=== PATIENT | female | born 1955 | race Caucasian/White ===

== ENCOUNTER 2020-07-27 07:54 | Emergency (ER) | payer OTHER ==
[~2020-07-27] VITALS: Ht 162.6 cm; Wt 56.7 kg
[2020-07-27 07:58] VITALS: BP_SYST 127
[2020-07-27] MEDS ORDERED: KETOROLAC TROMETHAMINE 60 MG/2 ML VIAL IM ONE (08:15)
[2020-07-27] MEDS ORDERED: LORazepam 1 MG TABLET PO ONE (08:15)
[2020-07-27 08:34] LABS: BASOPHILS # (AUTO) 0.1 K/uL (0.0-0.2); BASOPHILS % (AUTO) 0.9 % (0.0-2.0); EOSINOPHILS # (AUTO) 0.1 K/uL (0.0-0.4); EOSINOPHILS % (AUTO) 1.9 % (0.0-4.0); HEMATOCRIT 39.9 % (36-48); HEMOGLOBIN 13.1 g/dL (12.0-16.0); LYMPHOCYTES # (AUTO) 1.3 K/uL (1.0-5.5); LYMPHOCYTES % (AUTO) 21.2 % (20.5-51.5); MEAN CORPUSCULAR HEMOGLOBIN 29 pg (27-31); MEAN CORPUSCULAR HGB CONC 33 % (32-36); MEAN CORPUSCULAR VOLUME 89 fL (79.0-98.0); MONOCYTES # (AUTO) 0.4 K/uL (0.0-1.0); MONOCYTES % (AUTO) 6.1 % (1.7-9.3); NEUTROPHILS # (AUTO) 4.4 K/uL (1.8-7.7); NEUTROPHILS % (AUTO) 69.9 % (40.0-70.0); PLATELET COUNT (AUTO) 253 K/uL (130-430); RED BLOOD CELL COUNT(AUTO) 4.47 MIL/uL (4.2-6.2); RED CELL DISTRIBUTION WIDTH 14.4 % (9.0-15.0); WHITE BLOOD COUNT (AUTO) 6.3 K/uL (4.8-10.8)
[2020-07-27 08:57] LABS: CALCIUM 8.7 mg/dL (8.4-11.0); CREATININE 0.89 mg/dL (0.55-1.30); POTASSIUM 3.7 mmol/L (3.5-5.1)
[2020-07-27 09:02] LABS: ALBUMIN 3.5 g/dL (3.4-4.8)
[2020-07-27] MEDS ORDERED: NAPR-688 PO (10:19)
[2020-07-27 10:29] VITALS: BP_SYST 111
== END 2020-07-27 10:29 | disposition home or self-care (01) ==
LOC: SED 07:54
DX: R07.2 Precordial pain (principal)
CPT/HCPCS: 36415; 71045; 80053; 82550; 83880; 84484; 85025; 93005; 96372; 99285; J1885

== ENCOUNTER 2022-01-29 06:37 | Emergency (ER) | payer MEDICARE, OTHER ==
[~2022-01-29] VITALS: Ht 162.6 cm; Wt 64.0 kg
[~2022-01-29 06:37] MED LIST: NAPR-688 PO
[2022-01-29 07:00] VITALS: BP_SYST 152
--- NOTE | 2022-01-29 07:05 | NUR ---
Patient triaged and placed in waiting room. VS checked and patient appears in no acute distress at this time. Accompanied by self , awaiting available bed, and MD notified of need for MSE.
--- NOTE | 2022-01-29 08:09 | NUR ---
Patient to ER bed 8 to gown for evaluation. Side rails up. Report given to JACK YOUSIF.
--- NOTE | 2022-01-29 08:20 | NUR ---
seen by renny. pending x-ray.
--- NOTE | 2022-01-29 09:00 | NUR ---
RETURNED FROM X-RAY. SPLINT APPLIED BY TECH. ACI GIVEN BY JACK SANTIAGO. PT AGREES WITH D/C PLAN
== END 2022-01-29 09:00 | disposition home or self-care (01) ==
LOC: SED 06:37
DX: S60.032A Contusion of left middle finger without damage to nail, initial encounter (principal); Z79.899 Other long term (current) drug therapy; W20.8XXA Other cause of strike by thrown, projected or falling object, initial encounter; Y93.89 Activity, other specified; Y92.89 Other specified places as the place of occurrence of the external cause; Y99.8 Other external cause status
CPT/HCPCS: 73140-TC; 99283

== ENCOUNTER 2023-12-02 13:59 | Emergency (ER) | payer MEDICARE, OTHER ==
[~2023-12-02] VITALS: Ht 162.6 cm; Wt 61.7 kg
[2023-12-02 13:59] VITALS: BP_SYST 116; PULSE 80; RESP 18; TEMP 98.1; O2SAT 100
[2023-12-02] MEDS ORDERED: CEPH-548 PO (17:44)
[2023-12-02] MEDS ORDERED: NEOM28.36 TP (17:44)
[2023-12-02 17:52] VITALS: BP_SYST 125; PULSE 90; RESP 16; O2SAT 97
[2023-12-02] MEDS: cephALEXin 500 MG CAPSULE PO ONE (17:57)
== END 2023-12-02 17:52 | disposition home or self-care (01) ==
LOC: SED 13:59
DX: L60.0 Ingrowing nail (principal); Z79.899 Other long term (current) drug therapy
CPT/HCPCS: 99283